=== PATIENT | male | born 1955 | race Caucasian/White ===

== ENCOUNTER 2016-08-14 15:20 | Emergency (ER) | payer OTHER ==
[~2016-08-14] VITALS: Ht 175.3 cm; Wt 112.2 kg
[2016-08-14 15:30] VITALS: TEMP 36.8; Ht 175.3 cm; Wt 112.2 kg
[2016-08-14] MEDS ORDERED: VANCOMYCIN 1GM/270ML NSS IV STA (15:57)
[2016-08-14] MEDS ORDERED: SODIUM CHLORIDE 0.9% 1000ML 1,000 ML IV STA (15:57)
[2016-08-14] MEDS ORDERED: SULF800T23 PO (16:06)
[2016-08-14] MEDS ORDERED: MULTCHW PO (16:06)
[2016-08-14] MEDS ORDERED: ANF50 PO (16:06)
[2016-08-14] MEDS ORDERED: CLOZ100T PO (16:06)
[2016-08-14] MEDS ORDERED: OPTIRAY 320 IV PRN ×2 (16:15)
[2016-08-14 16:47] LABS: BASO % 0.3 %; BASO ABS # 0.03 K/uL (0-0.2); COMPLETE YES; HEMATOCRIT 38.2 % (42-52); IG% 1.1 %; LYMPH % 20.5 %; LYMPH ABS # 2.06 K/uL (1.2-3.4); MEAN CELL VOLUME 89.7 fL (80-100); MEAN CORPUSCULAR HGB CONC 33.5 g/dl (32-36); MEAN PLATELET VOLUME 9.6 fL (7.4-10.4); MONO % 9.9 %; NEUT % 68.2 %; PLATELET COUNT 264 K/uL (130-400); RED BLOOD COUNT 4.26 M/uL (4.7-6.1); WHITE BLOOD COUNT 10.07 K/uL (4.8-10.8)
[2016-08-14 17:09] LABS: BUN/CREATININE RATIO 19.4 (10-20); CALCIUM 8.8 mg/dl (8.5-10.1); CREATININE 0.88 mg/dl (0.60-1.40); POTASSIUM 3.5 mmol/L (3.5-5.1)
[2016-08-14 17:12] LABS: ALB/GLOB RATIO 0.7 (0.9-2)
--- NOTE | 2016-08-14 18:17 | DIAGNOSTIC IMAGING REPORT ---
CT OF THE CHEST WITH IV CONTRAST CLINICAL HISTORY: Worsening back abscess status post incision and drainage. COMPARISON STUDY: No previous studies for comparison. TECHNIQUE: Following IV administration of 94 mL of Optiray-320, helical axial images of the chest were obtained. Images were viewed in the axial, sagittal and coronal planes. IV contrast was administered without complication. CT DOSE: 809.33 mGy.cm FINDINGS: The heart is mildly enlarged. There is no pericardial effusion. No enlarged thoracic lymph nodes are present. Central airways are patent. There are scattered ill-defined tree-in-bud nodules within the right lung. There is no confluent consolidation. No pneumothorax or pleural effusion is present. There is no cavitation. Bony thorax and upper abdomen are unremarkable. Note is made of moderate infiltration and fluid within the left upper back which extends into the left supraclavicular region. This is partially imaged on this exam. The superior extent is not imaged on this exam. This involves the left trapezius muscle. There is minimal residual gas and fluid containing collection measuring 1.6 cm within the left upper back. No large fluid collection is present. IMPRESSION: 1. Moderate infiltration and fluid of the left upper back extending into the left supraclavicular region with possible involvement of the left trapezius muscle. Superior extent of this infectious process not imaged on this exam. Small residual gas and fluid containing collection suggestive of an abscess within the left upper back. No large residual fluid collection. The gas could be related to recent incision and drainage or reflect a gas-forming infectious process. 2. Scattered tree-in-bud opacities within the right lung which favor a mild infectious bronchial stent. Electronically signed by: Angelito Lewis M.D. 08/14/2016 6:15 PM Dictated Date/Time: 08/14/2016 6:07 PM
[2016-08-14 19:48] VITALS: BP 132/73; PULSE 77; O2SAT 98
[2016-08-14] MEDS ORDERED: CEPH500C PO (19:54)
--- NOTE | 2016-08-14 19:54 | EMERGENCY ROOM VISIT NOTE ---
History First contact with patient: 15:33 Chief Complaint: INFECTION Stated Complaint: INFECTION Nursing Triage Summary: Pt has cyst on Mid upper back that has been drained "multiple times" and was sent here by provider for IV antibiotics. Pt reports he thinks he is currently on Bactrim outpatient, but is unsure. Pt also reports he is to have the cust surgically removed on August 22 by dermatology. History of Present Illness The patient is a 60 year old male who presents to the Emergency Department by private vehicle for evaluation of an abscess to his back. He reports a history of an abscess to the back for approximately 15 years. He has had 2 previous episodes where he had to have incision performed. Yesterday, he presented to his primary care provider's office for worsening pain and redness. Incision and drainage was performed. No packing was placed. He returned today and received his second dose of IM Rocephin. On reevaluation, they were concerning for continued infection. Because of this, the patient was directed to the emergency Department for further evaluation and management. Patient denies any fevers or chills. He denies any headaches, dizziness, lightheadedness, nausea, or vomiting. He reports no chest pain, palpitations, or shortness of breath. He actually has appointment in early August with a marine diver to have the cyst removed. Review of Systems A complete 10-point Review of Systems was discussed with the patient, with pertinent positives and negatives listed in the History of Present Illness. All remaining Review of Systems questions can be considered negative unless otherwise specified. Social History Smoking Status: Never Smoker Smokeless Tobacco Use: No Drug Use: none Occupation Status: employed Current/Historical Medications Scheduled Cephalexin Monohydrate (Keflex), 500 MG PO TID Clomipramine Hcl (Anafranil), 100 MG PO HS Clozapine (Clozaril), 400 MG PO DAILY Multiple Vitamins W/ Minerals (Centrum Silver), 1 TAB PO QAM Sulfa/Trimethoprim (Bactrim Ds 800MG/160MG), 2 TAB PO BID Allergies Coded Allergies: Codeine (Verified Allergy, Severe, DISORIENTED, CONFUSED., 08/14/16) Physical Exam Vital Signs Date Time Temp Pulse Resp B/P Pulse Ox O2 Delivery O2 Flow Rate FiO2 08/14/16 19:48 77 20 132/73 98 Room Air 08/14/16 17:24 76 16 127/78 97 Room Air 08/14/16 15:30 36.8 87 20 124/75 95 Room Air Pain Rating (0-10): 3 Physical Exam VITAL SIGNS - Vital signs and nursing notes were reviewed. GENERAL - 60-year-old male appearing his stated age who is in no acute distress. Communicates well with provider and answers questions appropriately. SKIN - 2.5 cm incision noted to the LEFT-sided upper back. Expressible purulent material from the area. Surrounding induration. Edema that extends up the back to the posterior shoulder. HEAD - NC/AT. EYES - PERRL with EOMI bilaterally. Sclera anicteric. Palpebral conjunctiva pink and moist with no injection noted. EARS - No deformities of external structures noted on gross examination bilaterally. No pain elicited with palpation of the tragus bilaterally. External auditory canals without discharge or otorrhea. Tympanic membranes pearly bro without retraction or bulging. No fluid or purulent material visualized behind the TM. Handle of malleus, umbo, cone of light, pars tensa/ flaccid all easily visualized. NOSE - Midline and without cyanosis. No epistaxis or purulent drainage noted. Septum midline without deviation or septal hematoma noted. MOUTH/OROPHARYNX - Without perioral cyanosis. Buccal mucosa pink and moist and without leukoplakia. Tongue midline with equal elevation of palate bilaterally. No tonsillar hypertrophy, erythema, or exudates noted. NECK - Neck with FROM. Supple to palpation. No lymphadenopathy noted. No nuchal rigidity. LUNGS - Chest wall symmetric without accessory muscle use, intercostals retractions, or central cyanosis. Normal vesicular breath sounds CTA B/L. No wheezes, rales, or rhonchi appreciated. CARDIAC - RRR with S1/S2. No murmur, rubs, or gallops appreciated. ABDOMEN - Abdominal contour protuberant without pulsations or visible masses. BS normoactive all four quadrants. No tenderness, palpable masses, hepatosplenomegaly, or ascites noted. Medical Decision & Procedures ER Provider Diagnostic Interpretation: Radiological imaging and reports were reviewed by myself. Radiologist's Interpretation as follows: CT OF THE CHEST WITH IV CONTRAST CLINICAL HISTORY: Worsening back abscess status post incision and drainage. COMPARISON STUDY: No previous studies for comparison. TECHNIQUE: Following IV administration of 94 mL of Optiray-320, helical axial images of the chest were obtained. Images were viewed in the axial, sagittal and coronal planes. IV contrast was administered without complication. CT DOSE: 809.33 mGy.cm FINDINGS: The heart is mildly enlarged. There is no pericardial effusion. No enlarged thoracic lymph nodes are present. Central airways are patent. There are scattered ill-defined tree-in-bud nodules within the right lung. There is no confluent consolidation. No pneumothorax or pleural effusion is present. There is no cavitation. Bony thorax and upper abdomen are unremarkable. Note is made of moderate infiltration and fluid within the left upper back which extends into the left supraclavicular region. This is partially imaged on this exam. The superior extent is not imaged on this exam. This involves the left trapezius muscle. There is minimal residual gas and fluid containing collection measuring 1.6 cm within the left upper back. No large fluid collection is present. IMPRESSION: 1. Moderate infiltration and fluid of the left upper back extending into the left supraclavicular region with possible involvement of the left trapezius muscle. Superior extent of this infectious process not imaged on this exam. Small residual gas and fluid containing collection suggestive of an abscess within the left upper back. No large residual fluid collection. The gas could be related to recent incision and drainage or reflect a gas-forming infectious process. 2. Scattered tree-in-bud opacities within the right lung which favor a mild infectious bronchial stent. Laboratory Results 08/14/16 16:10 Red Blood Count 4.26, Mean Corpuscular Volume 89.7, Mean Corpuscular Hemoglobin 30.0, Mean Corpuscular Hemoglobin Concent 33.5, Mean Platelet Volume 9.6, Neutrophils (%) (Auto) 68.2, Lymphocytes (%) (Auto) 20.5, Monocytes (%) (Auto) 9.9, Eosinophils (%) (Auto) 0.0, Basophils (%) (Auto) 0.3, Neutrophils # (Auto) 6.87, Lymphocytes # (Auto) 2.06, Monocytes # (Auto) 1.00, Eosinophils # (Auto) 0.00, Basophils # (Auto) 0.03 08/14/16 16:10 Test 08/14/16 16:10 White Blood Count 10.07 K/uL (4.8-10.8) Red Blood Count 4.26 M/uL (4.7-6.1) Hemoglobin 12.8 g/dL (14.0-18.0) Hematocrit 38.2 % (42-52) Mean Corpuscular Volume 89.7 fL (80-100) Mean Corpuscular Hemoglobin 30.0 pg (25-34) Mean Corpuscular Hemoglobin Concent 33.5 g/dl (32-36) Platelet Count 264 K/uL (130-400) Mean Platelet Volume 9.6 fL (7.4-10.4) Neutrophils (%) (Auto) 68.2 % Lymphocytes (%) (Auto) 20.5 % Monocytes (%) (Auto) 9.9 % Eosinophils (%) (Auto) 0.0 % Basophils (%) (Auto) 0.3 % Neutrophils # (Auto) 6.87 K/uL (1.4-6.5) Lymphocytes # (Auto) 2.06 K/uL (1.2-3.4) Monocytes # (Auto) 1.00 K/uL (0.11-0.59) Eosinophils # (Auto) 0.00 K/uL (0-0.5) Basophils # (Auto) 0.03 K/uL (0-0.2) RDW Standard Deviation 43.5 fL (36.4-46.3) RDW Coefficient of Variation 13.2 % (11.5-14.5) Immature Granulocyte % (Auto) 1.1 % Immature Granulocyte # (Auto) 0.11 K/uL (0.00-0.02) Anion Gap 6.0 mmol/L (3-11) Est Creatinine Clear Calc Drug Dose 111.6 ml/min Estimated GFR () 109.0 Estimated GFR (Non- 94.0 BUN/Creatinine Ratio 19.4 (10-20) Calcium Level 8.8 mg/dl (8.5-10.1) Total Bilirubin 0.2 mg/dl (0.2-1) Aspartate Amino Transf (AST/SGOT) 28 U/L (15-37) Alanine Aminotransferase (ALT/SGPT) 53 U/L (12-78) Alkaline Phosphatase 134 U/L (45-117) Total Protein 6.0 gm/dl (6.4-8.2) Albumin 2.5 gm/dl (3.4-5.0) Globulin 3.5 gm/dl (2.5-4.0) Albumin/Globulin Ratio 0.7 (0.9-2) Medications Administered Medications (Trade) Dose Ordered Sig/Gibran Route Start Time Stop Time Status Last Admin Dose Admin Vancomycin HCl 1 gm 1 gm NOW STAT IV 08/14/16 15:57 08/14/16 16:00 DC 08/14/16 16:38 1 GM Sodium Chloride (Nss 1000ml) 1,000 ml @ 125 mls/hr Q8H STAT IV 08/14/16 15:57 08/14/16 23:56 08/14/16 16:39 125 MLS/HR ED Course Patient was seen and evaluated by myself. Labs were drawn, saline lock in place. Wound culture was obtained. Patient was treated with IV vancomycin. He was hydrated with normal saline at a rate of 125 mL per hour. Laboratory results demonstrate no acute leukocytosis, worrisome anemia, or bandemia. The patient has no significant electrolyte abnormalities. CT results as above. I did initially discuss the case with thoracic surgery. He does not feel immediate intervention is necessary. I also discussed the case with Dr. Hernández of Gen. surgery. He suggests having the patient follow-up in the outpatient this week for recheck and further management if necessary. Case management was involved and asked to help establish an appointment early this week for further evaluation and management. Patient was comfortable with this disposition and plan. Patient discharged home afebrile and in good condition. Medical Decision Given the patient's presentation and exam findings, I did elect to perform the above-mentioned workup. The patient presents to the emergency department today with worsening sebaceous cyst with infection. He has no fever leukocytosis. There is continued purulent drainage from the cyst. There was no packing in place. I'm not comfortable continuing to pack the area after not having perform the initial I&D. Regardless, I do feel that imaging studies are necessary further evaluation of the area of infection. CT results as above. Patient will follow closely with Gen. surgery in outpatient setting for further evaluation and management. Patient appears to have a healing cellulitis. The patient will return for changing/worsening symptoms. Patient discharged home afebrile and in good condition. In the evaluation and treatment of this patient, the following differential diagnoses were considered: Necrotizing fasciitis, hematoma, epidural abscess, amongst others. Impression Primary Impression: Abscess of back Departure Information Dispostion Home / Self-Care Condition GOOD Prescriptions Cephalexin Monohydrate (Keflex) 500 Mg Cap 500 MG PO TID for 7 Days, #21 CAP Prov: Manny Guidry, LORAINE 08/14/16 Referrals Chucky Miller, D.OElvia (PCP) Patient Instructions My [facility] Additional Instructions You've been seen in the emergency department today for an abscess to your back. Please take the Keflex in addition to the Bactrim. You will be contacted tomorrow morning for a follow-up appointment with general surgery. Return to the emergency department for any changing or worsening symptoms.
== END 2016-08-14 20:15 | disposition home or self-care (01) ==
LOC: C.EDB 15:21 → C.EDC 20:15
DX: L02.212 Cutaneous abscess of back [any part, except buttock and flank] (principal); Z79.899 Other long term (current) drug therapy

== ENCOUNTER 2017-04-08 07:35 | Day surgery (SDC) | payer OTHER ==
[2017-04-04 14:08] VITALS: Ht 175.3 cm; Wt 111.8 kg
[~2017-04-08] VITALS: Ht 175.3 cm; Wt 111.8 kg
[~2017-04-08 07:35] MED LIST: ANF50 PO; ATROPINE SULFATE 0.1 MG/ML 5ML SYR IV PRN; CLOZ100T PO; EpHEDrine SULFATE INJ 50 MG/ML AMP IV PRN; FENTANYL CITRATE INJ 50 MCG/1 ML 2 ML VIAL IV PRN; HYDROmorphone INJ 1 MG/ML SYR IV PRN; LACTATED RINGER'S 1000ML 1,000 ML IV SCH; MULTCHW PO; ONDANSETRON INJ 2 MG/ML 2 ML VIAL IV PRN; PROMETHAZINE HCL INJ 12.5 MG in SODIUM CHLORIDE 0.9% 50ML 50 ML IV PRN
[2017-04-08 08:06] VITALS: BP 140/78; PULSE 86; TEMP 36.5; O2SAT 96
[2017-04-08] MEDS ORDERED: MIDAZOLAM HCL 1 MG/ML 2ML VIAL ONE (10:02)
[2017-04-08] MEDS ORDERED: FENTANYL CITRATE INJ 50 MCG/1 ML 2 ML VIAL ONE (10:02)
[2017-04-08] MEDS ORDERED: LIDOCAINE HCL 2% 2 ML VIAL (20MG/ML) ONE ×2 (10:03)
[2017-04-08] MEDS ORDERED: PROPOFOL IV EMULSION 10 MG/ML 20 ML VIAL IV ONE (10:03)
--- NOTE | 2017-04-08 10:33 | History & Physical Bridge Note ---
H&P Re-Evaluation Bridge Note: I have examined the patient, reviewed the History & Physical and in the interval since the performance of the History & Physical I have noted the following changes of clinical significance: No changes noted
[2017-04-08] MEDS ORDERED: BUPIVACAINE 0.5 % 5 MG/1 ML MPF 30ML VIAL ONE (10:39)
[2017-04-08] MEDS ORDERED: LIDOCAINE/EPINEPHRINE 1% 20 ML VIAL ONE (10:40)
[2017-04-08] MEDS ORDERED: ONDANSETRON INJ 2 MG/ML 2 ML VIAL ONE (11:08)
[2017-04-08] MEDS ORDERED: DEXAMETHASONE SOD INJ 4 MG/ML VIAL ONE ×2 (11:08)
[2017-04-08] MEDS ORDERED: SODIUM CHLORIDE 0.9% 1000ML 1,000 ML IV SCH (11:54)
--- NOTE | 2017-04-08 11:54 | [facility] Post Operative Brief Note ---
Immediate Operative Summary Operative Date Apr 08, 2017. Pre-Operative Diagnosis sebaceous cyst Post-Operative Diagnosis sebaceous cyst Procedure(s) Performed excision of sebaceous cyst from back Surgeon Dr. Rivera Hernández Revenue Analyst Surgeon(s) none Estimated Blood Loss 10ml Findings See dictation Specimens A: sebaceous cyst Drains None Anesthesia General Complication(s) None Disposition Recovery Room / PACU
[2017-04-08] MEDS ORDERED: ONDANSETRON INJ 2 MG/ML 2 ML VIAL IV PRN (12:00)
[2017-04-08] MEDS ORDERED: KETOROLAC TROMETHAMINE 10 MG TAB PO PRN (12:00)
[2017-04-08] MEDS ORDERED: IBUPROFEN 600 MG TAB PO PRN (12:00)
--- NOTE | 2017-04-08 12:01 | Discharge Instructions ---
Discharge Instructions Date of Service Apr 08, 2017. Admission Reason for Admission: Sebaceous Cyst Discharge Discharge Diagnosis / Problem: Same Discharge Goals Goal(s): Decrease discomfort Activity Recommendations Activity Limitations: per Instructions/Follow-up section Lifting Limitations: no more than 10 pounds (for 2 weeks) Shower/Bathe: tomorrow (shower only) . Instructions / Follow-Up Instructions / Follow-Up MEDICATIONS: Resume previous medications unless instructed otherwise by your surgeon. * Ibuprofen 600 mg every 6 hours with food * Tylenol 650 mg every 4 hours, as needed for pain SPECIAL CARE INSTRUCTIONS: * May shower in 24 hours. Let water run over area and pat dry. * Leave dressing on for 2 days and then remove. If you are going to be doing anything in a dirty area then recover. * There may be some drainage from the wound. If the dressing is saturated you junaid change it as necessary. * Call the surgeon's office with any questions or concerns - (ex. temperature higher than 101 degrees F, excessive bleeding or pain). FOLLOW UP VISIT: If not already scheduled, please call the office to schedule a follow-up appointment for April 19 for wound check and possible suture removal. Office number Current Hospital Diet Patient's current hospital diet: Discharge Diet Recommended Diet: Regular Diet Procedures Procedures Performed: excision of sebaceous cyst from back Pending Studies Studies pending at discharge: yes List of pending studies: Pathology Medical Emergencies . Who to Call and When: Medical Emergencies: If at any time you feel your situation is an emergency, please call 911 immediately. . Non-Emergent Contact Non-Emergency issues call your: Primary Care Provider, Surgeon Call Non-Emergent contact if: your pain is worsening, wound has increased redness, wound has increased pain . "Provider Documentation" section prepared by Rivera Hernández. . VTE Core Measure Inpt VTE Proph given/why not?: Treatment not indicated
--- NOTE | 2017-04-08 12:34 | Anesthesiology Progress Note ---
Anesthesia Post Op Note Date & Time Apr 08, 2017 at 12:34 Vital Signs Pain Intensity: 0 Vital Signs Past 12 Hours Date Time Temp Pulse Resp B/P (MAP) Pulse Ox O2 Delivery O2 Flow Rate FiO2 04/08/17 12:30 36.0 71 15 154/88 100 Room Air 04/08/17 12:20 74 17 141/88 100 Oxymask 10 04/08/17 12:10 75 17 143/89 100 Oxymask 04/08/17 12:03 36.4 80 20 143/77 95 Oxymask 13 04/08/17 08:06 36.5 86 20 140/78 (98) 96 Room Air Notes Mental Status: alert / awake / arousable, participated in evaluation Pt Amnestic to Procedure: Yes Nausea / Vomiting: adequately controlled Pain: adequately controlled Airway Patency, RR, SpO2: stable & adequate BP & HR: stable & adequate Hydration State: stable & adequate Anesthetic Complications: no major complications apparent Awake, doing well, no complaints. VSS
[2017-04-08 12:50] VITALS: BP 133/83; PULSE 73; TEMP 36.3; O2SAT 100
[2017-04-08 13:20] VITALS: BP 131/85; PULSE 70; TEMP 36.6; O2SAT 100
[2017-04-08 13:48] VITALS: BP 120/74; PULSE 71; TEMP 36.6; O2SAT 98
--- NOTE | 2017-04-08 19:05 | OPERATIVE REPORT ---
DATE OF OPERATION: 04/08/2017 PREOPERATIVE DIAGNOSIS: Previously infected sebaceous cyst near the left scapula. POSTOPERATIVE DIAGNOSIS: Same. PROCEDURE: Removal of previously infected sebaceous cyst. SURGEON: Rivera Hernández MD. FINDINGS: This patient had had a 10 cm area of purulent material that was drained few months ago. There were 2 counterincisions. The upper lateral counterincision had healed as had the tract; however, there were still a small opening at the inferomedial area. I believe that is where the original cyst was located. The area was marked preoperatively. The decision was made to excise that area and if there was a tract that continued through the subcutaneous tissue then I would remove that as well. That was unnecessary as the cyst itself did not continue beyond the area that was opened. TECHNIQUE: The patient was given a general anesthetic and the area was prepped and draped in the usual sterile fashion. Elliptical incision was made around the small opening and where the cyst was located. That was carried down through the thick skin of the back to the fat superiorly and inferiorly. I then carried the dissection medially and laterally and until I was down to normal fat. I then amputated the specimen. All that dissection was done using cautery. Cautery was then used to create flaps just above the fascia for a distance of at least 2 cm around the entire circumference of the incision. Meticulous hemostasis was obtained. That allowed for closure of the incision without tension. The deep tissues were approximated with interrupted 2-0 Vicryl. The subcutaneous and deep dermal tissue was closed with a running 2-0 Vicryl and the skin was closed with 3-0 Prolene vertical mattress sutures. The estimated blood loss was 5 mL. Sponge, needle and instrument counts were correct prior to closure. A 6 cm incision was required for removal of the specimen. A dressing was placed. The patient tolerated the surgical procedure without complication and was transferred to recovery. I attest to the content of the Intraoperative Record and any orders documented therein. Any exception s are noted below.
== END 2017-04-08 13:59 | disposition home or self-care (01) ==
LOC: C.OR 07:35
PROVIDERS: ATTEND Surgery
DX: L72.3 Sebaceous cyst (principal); F20.9 Schizophrenia, unspecified; Z98.41 Cataract extraction status, right eye; F17.200 Nicotine dependence, unspecified, uncomplicated; K21.9 Gastro-esophageal reflux disease without esophagitis; Z87.442 Personal history of urinary calculi; G47.33 Obstructive sleep apnea (adult) (pediatric)